=== PATIENT | female | born 1930 | race Asian ===

== ENCOUNTER → 2017-04-16 | Outpatient (CLI) | payer MEDICARE, OTHER | END | disposition home or self-care (01) | LOC: RADPV 10:37 | PROVIDERS: ATTEND Internal Medicine Cardiovascular Disease | DX: I37.1 Nonrheumatic pulmonary valve insufficiency (principal); I50.30 Unspecified diastolic (congestive) heart failure | CPT/HCPCS: 93005; 93306 ==

== ENCOUNTER → 2017-04-17 | Outpatient (CLI) | payer MEDICARE, OTHER | END | disposition home or self-care (01) | LOC: RADPV 10:09 | PROVIDERS: ATTEND Internal Medicine | DX: M41.86 Other forms of scoliosis, lumbar region (principal); M43.8X6 Other specified deforming dorsopathies, lumbar region; M51.86 Other intervertebral disc disorders, lumbar region; I70.0 Atherosclerosis of aorta; M48.06 Spinal stenosis, lumbar region; M43.8X4 Other specified deforming dorsopathies, thoracic region | CPT/HCPCS: 72100 ==

== ENCOUNTER → 2017-06-21 | Outpatient (CLI) | payer MEDICARE, OTHER | END | disposition home or self-care (01) | LOC: RADPV 10:30 | PROVIDERS: ATTEND Orthopaedic Surgery | DX: M17.11 Unilateral primary osteoarthritis, right knee (principal) ==